=== PATIENT | female | born 1965 | race African-American/Black ===

== ENCOUNTER 2024-07-29 11:30 | Emergency (ER) | payer MEDICAID, OTHER ==
[~2024-07-29] VITALS: Ht 170.2 cm; Wt 88.0 kg
[~2024-07-29 11:30] MED LIST: AMLO5TAB88 PO; BENA40TA91 PO; BUPR75TA8 PO; CYCL10TA21 PO; DICL100G58; ERGO1250 PO; HYDR25TA PO; HYDR50TA39 PO; LOSA100T33 PO; METO10TA3; OMEP40CA20 PO; POTA-203 PO; PRED10TA PO; SULF500T8 PO; TRAZ-251 PO
[2024-07-29 11:51] VITALS: TEMP 36.8; O2SAT 100
[2024-07-29] MEDS ORDERED: ACET-2708 MT (13:15)
[2024-07-29 13:42] VITALS: BP 140/59; PULSE 64; RESP 14; O2SAT 100
== END 2024-07-29 13:44 | disposition home or self-care (01) ==
LOC: ER 11:30
DX: R07.81 Pleurodynia (principal); I10 Essential (primary) hypertension; M19.90 Unspecified osteoarthritis, unspecified site; Z79.52 Long term (current) use of systemic steroids; Z79.899 Other long term (current) drug therapy
CPT/HCPCS: 71046; 99283